=== PATIENT | female | born 1995 | race Caucasian/White ===

== ENCOUNTER → 2017-04-20 | Outpatient (CLI) | payer BC ==
--- NOTE | 2017-04-21 09:00 | CPEEG ---
[f rep st] ELECTROENCEPHALOGRAM DATE OF STUDY: 04/20/2017 INTERPRETATION: This 4-hour video EEG recording is normal. There were no potentially epileptogenic abnormalities present during the recording. During the video EEG monitoring session, the patient did not have any clinical events. REPORT: This 4-hour video EEG contains 10 Hz alpha to the posterior head regions. There was no abno rmal activation at rest, during photic stimulation or hyperventilation. The patient became drowsy an d fell into sustained sleep during the study. There was no abnormal activation during drowsiness, sl eep, or during times of arousal. The patient did not have any clinical events during the video EEG m onitoring session. /[id number]/MODL
== END ==
LOC: FCPNEURO 07:47
PROVIDERS: ATTEND Psychiatry & Neurology Neurology
DX: G40.909 Epilepsy, unspecified, not intractable, without status epilepticus (principal)